=== PATIENT | female | born 1950 | race Caucasian/White ===

== ENCOUNTER → 2016-03-23 | Outpatient (CLI) | payer OTHER | LOC: GMAB 10:50 | PROVIDERS: ATTEND Family Medicine | DX: Z00.01 Encounter for general adult medical examination with abnormal findings (principal) ==

== ENCOUNTER → 2016-04-03 | Outpatient (CLI) | payer SELFPAY ==
--- NOTE | 2016-04-03 15:16 | CT ---
EXAM DESCRIPTION: CT ABDOMEN PELVIS WITHOUT THEN WITH IV CONTRAST CLINICAL HISTORY: UPPER QUAD PAIN COMPARISON: May 10, 2007 TECHNIQUE: Pre and post contrast CT images of the abdomen and pelvis are obtained. CT scan done according to ALARA (As Low As Reasonably Achievable). FINDINGS: Visualized lung bases show no acute findings. The liver, spleen, pancreas, and adrenal glands are unremarkable. Surgical clips from cholecystectomy are seen without complicating features. Moderate vascular calcifications are identified. Kidneys show no abnormal calcifications. No ureteral calcification or obstruction is identified. Urinary bladder fills with contrast on delayed images and is unremarkable. There is surgical absence of the uterus. The ovaries are not identified. The appendix is within normal limits. No small bowel obstruction is seen. Colon shows mild diverticuli in the sigmoid region without associated inflammatory changes or fluid collections. No pathologically enlarged abdominal or retroperitoneal lymphadenopathy. Osseous structures show no aggressive bony lesions. Degenerative changes of the spine are seen. IMPRESSION: No acute findings on CT of the abdomen and pelvis. Postsurgical changes from cholecystectomy and hysterectomy are noted. Mild colon diverticulosis without CT evidence of diverticulitis. No evidence of nephrolithiasis on CT examination. Electronically signed by: Chicho Baeza MD 04/03/2016 15:14
== END | disposition home or self-care (01) ==
LOC: CT 13:52
PROVIDERS: ATTEND Family Medicine
DX: R10.12 Left upper quadrant pain (principal)

== ENCOUNTER → 2017-06-14 | Outpatient (CLI) | payer OTHER | LOC: GMAB 10:56 | PROVIDERS: ATTEND Family Medicine | DX: Z00.01 Encounter for general adult medical examination with abnormal findings (principal) ==

== ENCOUNTER → 2018-05-09 | Outpatient (CLI) | payer MEDICARE, OTHER | LOC: GMAE 10:37 | PROVIDERS: ATTEND Family Medicine | DX: I10 Essential (primary) hypertension (principal) ==

== ENCOUNTER → 2019-06-01 | Outpatient (CLI) | payer MEDICARE, OTHER | LOC: GMAE 12:31 | PROVIDERS: ATTEND Family Medicine | DX: R94.5 Abnormal results of liver function studies (principal); I10 Essential (primary) hypertension; R74.9 Abnormal serum enzyme level, unspecified ==

== ENCOUNTER → 2019-06-02 | Outpatient (CLI) | payer MEDICARE, OTHER ==
--- NOTE | 2019-06-02 09:40 | US ---
EXAM DESCRIPTION: Liver: ULTRASOUND. CLINICAL HISTORY: ABN RESULTS OF LIVER FUNCTION STUDIES COMPARISON: CT scan abdomen March 2016. TECHNIQUE: Transabdominal scannin-dimensional and Doppler modes. FINDINGS: Gallbladder: Surgically absent. No fluid in the gallbladder fossa. Non-tender with transducer pressure. Common bile duct: caliber 6.9 mm within normal limits. Liver: normal echogenicity; contour liver capsule smooth where seen. No fluid around the liver. Intrahepatic biliary ducts normal caliber. Doppler hepatopedal flow portal vein. 6 mm Long axis right lobe 13.3 cm. Pancreas: normal size and echogenicity. Duct not seen. Right kidney: long axis measures 8.3 cm. Normal cortical echogenicity. 10 mm cortical thickness. No echogenic stones or hydronephrosis. Aorta proximal: 1.8 cm normal diameter. IMPRESSION: 1. Fatty liver normal size. Normal ducts and physiologic vascularity. Lungs are unremarkable. Pancreas negative. 2. Prior cholecystectomy. Slight dilation of the common bile duct physiologic postcholecystectomy. Normal caliber of the abdominal aorta. 3. Right kidney with thin cortex. Otherwise unremarkable. Correlate for medical renal disease. Electronically signed by: Turner Reilly MD 06/02/2019 9:39 AM CDT
== END ==
LOC: US 08:58
PROVIDERS: ATTEND Family Medicine
DX: R94.5 Abnormal results of liver function studies (principal); K76.0 Fatty (change of) liver, not elsewhere classified; Z90.49 Acquired absence of other specified parts of digestive tract; N28.9 Disorder of kidney and ureter, unspecified

== ENCOUNTER → 2019-09-19 | Outpatient (CLI) | payer MEDICARE, OTHER | LOC: GMAE 10:50 | PROVIDERS: ATTEND Family Medicine | DX: R74.9 Abnormal serum enzyme level, unspecified (principal); R94.5 Abnormal results of liver function studies ==

== ENCOUNTER → 2019-10-05 | Outpatient (CLI) | payer MEDICARE, OTHER ==
--- NOTE | 2019-10-06 16:12 | MAM ---
EXAM DESCRIPTION: 3D Screening BILATERAL : Digital Mammography. CLINICAL HISTORY: 69 years Female SCREEN . No complaints. Menarche age 14. Childbirth age 50. Menopause age unknown. Previous benign biopsy left breast. Currently on HRT.. Lifetime risk of developing breast cancer (Tyrer-Cuzick model)(%): 10.0. COMPARISON: Baseline study at this facility.. No prior reports available. TECHNIQUE: Bilateral CC and MLO projection full-field images, digital tomosynthesis mammographic technique. Bilateral digital 2-D full-field MLO images. CAD available for 2-D images. FINDINGS: The breast parenchymal density pattern is: Scattered areas of fibroglandular density. No skin thickening or nipple retraction. Large coarse calcification in the posterior third of the breast near the posterior nipple line with nearby architectural distortion may be related to site of prior biopsy or trauma. Solitary microcalcifications. Vascular calcifications. Intramammary lymph nodes. Nodular fibroglandular elements. Mass density with smooth margins at the 5:30 position of the middle third right breast. Mass density versus focal asymmetry right breast 2 cm lateral from the nipple at 9:00. Partially circumscribed mass and partially asymmetric density in the middle third of the left breast at the 1:30-2:00 position. Focal asymmetry left breast 3 cm from the nipple at 3:00. IMPRESSION: BI-RADS CATEGORY: 0 - INCOMPLETE- Need additional imaging evaluation. RECOMMENDATIONS: FOLLOW-UP: Recall for additional imaging: Bilateral LM projection 3-D tomosynthesis full field images. Bilateral directed ultrasound to the regions of interest.. Written communication concerning the IMPRESSION and Follow-up, will be mailed to the patient and referring health care provider. Electronically signed by: Turner Reilly MD 10/06/2019 4:10 PM CDT
== END ==
LOC: MAMMO 13:00
PROVIDERS: ATTEND Family Medicine
DX: Z12.31 Encounter for screening mammogram for malignant neoplasm of breast (principal)